=== PATIENT | male | born 1990 | race Caucasian/White ===

== ENCOUNTER 2019-09-12 11:35 | Emergency (ER) | payer SELFPAY ==
[2019-09-12 11:48] VITALS: BP 124/73
--- NOTE | 2019-09-12 12:53 | Emergency Department Report ---
Chief Complaint: Earache Stated Complaint: RT EAR BUMP/RT HEAD PAIN Time Seen by Provider: 09/12/19 12:37 - HPI History of Present Illness: 28-year-old male presents to the emergency room complaining of swelling to the back of his ear and difficulty hearing out of his right ear. Patient states this been going on for 4 days. Patient reports he is taking Tylenol. Patient reports he has no primary care provider. Vital signs are stable. - Exam Vital Signs: Vital Signs 09/12/19 11:44 Temperature 98.1 F Pulse Rate 86 Respiratory 18 Rate Blood Pressure 124/73 O2 Sat by Pulse 96 Oximetry Physical Exam: Patient is alert and oriented x3 no acute distress. Right ear canal swelling with mild discharge. MSE screening note: Focused history and physical exam performed. Due to findings the following was ordered: 28-year-old male presents to the emergency room complaining of swelling to the back of his ear and difficulty hearing out of his right ear. Patient states this been going on for 4 days. Patient reports he is taking Tylenol. Patient reports he has no primary care provider. Vital signs are stable. Recommend patient to follow-up with the urgent care or ear nose and throat provider. ED Disposition for MSE Disposition: Z-07 MED SCREENING EXAM-LEFT Is pt being admited?: No Does the pt Need Aspirin: No Condition: Stable Additional Instructions: Take ibuprofen follow-up with the urgent care in the next [address] Ky Phillips. Also referred you to ear nose and throat provider Dr. Omid Guerra. Referrals: ASHLEY LEE MD [Staff Physician] - 3-5 Days GERMÁN ANGELES MD [Staff Physician] - 3-5 Days
== END 2019-09-12 13:29 | disposition left against medical advice (07) ==
LOC: ED 11:35
DX: H93.8X1 Other specified disorders of right ear (principal)
CPT/HCPCS: 99281